=== PATIENT | female | born 2000 | race African-American/Black ===

== ENCOUNTER 2024-11-19 07:58 | Emergency (ER) | payer MEDICAID ==
[~2024-11-19] VITALS: Ht 154.9 cm; Wt 90.7 kg
[2024-11-19 08:17] VITALS: O2SAT 99
[2024-11-19 10:04] VITALS: BP 113/60; PULSE 90; RESP 14; TEMP 36.8; O2SAT 99
== END 2024-11-19 10:05 | disposition home or self-care (01) ==
LOC: ER 08:09
DX: R60.0 Localized edema (principal); Z59.02 Unsheltered homelessness
CPT/HCPCS: 71045; 99283

== ENCOUNTER 2025-07-01 17:37 | Emergency (ER) | payer MEDICAID ==
[2025-07-01 17:46] VITALS: PULSE 83; RESP 18; O2SAT 99
[2025-07-01] MEDS ORDERED: ACET-2708 MT (19:33)
== END 2025-07-01 20:15 | disposition home or self-care (01) ==
LOC: ER 17:37
DX: M79.644 Pain in right finger(s) (principal); M79.89 Other specified soft tissue disorders; W23.0XXA Caught, crushed, jammed, or pinched between moving objects, initial encounter; Y93.89 Activity, other specified; Y92.89 Other specified places as the place of occurrence of the external cause; Y99.8 Other external cause status
CPT/HCPCS: 29130; 29505; 73140; 99283